=== PATIENT | male | born 1995 | race Caucasian/White ===

== ENCOUNTER 2022-03-02 14:29 | Emergency (ER) | payer OTHER, SELFPAY ==
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
[2022-03-02 14:32] VITALS: BP 132/78; PULSE 93; RESP 17; TEMP 36.7; O2SAT 97
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
[2022-03-02 17:17] VITALS: BP 118/68; PULSE 76; RESP 16; TEMP 36.8; O2SAT 100
== END 2022-03-02 17:19 | disposition home or self-care (01) ==
PROVIDERS: Emergency Provider Nurse Practitioner Family
DX: S46.911A Strain of unspecified muscle, fascia and tendon at shoulder and upper arm level, right arm, initial encounter (principal); S20.211A Contusion of right front wall of thorax, initial encounter; V86.55XA Driver of 3- or 4- wheeled all-terrain vehicle (ATV) injured in nontraffic accident, initial encounter
CPT/HCPCS: 71046; 71100; 72072; 73030; 99284; A4565